=== PATIENT | female | born 1985 | race Caucasian/White ===

== ENCOUNTER 2017-06-02 13:56 | Emergency (ER) | payer OTHER ==
[2017-06-02 14:02] VITALS: BMI 31.3
[2017-06-02 14:07] VITALS: PULSE 67; TEMP 97.7
[2017-06-02] MEDS ORDERED: Sodium Chloride 0.9% 1,000 ML IV STA (14:27)
--- NOTE | 2017-06-02 14:27 | ED PDOC ---
Arrival/HPI <Patrick Dee - Last Filed: 06/02/17 15:41> <Blaise Ivy - Last Filed: 06/02/17 16:26> - General Chief Complaint: Abdominal Pain Time Seen by Provider: 06/02/17 14:02 - History of Present Illness Narrative History of Present Illness (Text): 06/02/17 14:23 31 year old female with a past medical history of hormonal imbalance, R sided kidney stone and recent unknown urological procedure within 1 month at [facility] [place]. The patient is complaining of RLQ pain. The pain is cramping in nature with periods of a sharp, stabbing-like pain. The pain started last night. She spent the night vomiting due to the pain. She is no longer nauseous or vomiting. She has been able to eat and drink today with no problem. She took advil with no relief and midol which relieved the pain for approximately one hour. The patient states that she has some burning and pain with urination. Denies f/c, d/ c, sob, cp, lightheadedness or dizziness. (Patrick Dee) Associated Symptoms (Text): 06/02/17 14:53 Seen and examined with the resident. Our history and physical exam reveals a young woman who reports a 2-3 month history of right-sided flank and right- sided abdominal pain. She was seen at another hospital and had an unknown urological procedure done. She reports that she developed severe pain again last night along with nausea and vomiting. The pain was again severe this morning so she came to the emergency department. It has since resolved. No diarrhea. She also complains of urinary frequency urgency and dysuria. No fever or chills. No injury or trauma. She is currently comfortable. There is also some chronic left-sided sciatica. (Blaise Ivy) Past Medical History - Provider Review Nursing Documentation Reviewed: Yes - Infectious Disease Hx of Infectious Diseases: None - Reproductive Menopause: No - Cardiac Hx Cardiac Disorders: No - Pulmonary Hx Respiratory Disorders: No - Neurological Hx Neurological Disorder: No - HEENT Hx HEENT Disorder: No - Renal Hx Renal Disorder: No - Endocrine/Metabolic Other/Comment: Hormonal inbalance - Hematological/Oncological Hx Blood Disorders: No - Integumentary Hx Dermatological Disorder: No - Musculoskeletal/Rheumatological Hx Musculoskeletal Disorders: No - Gastrointestinal Hx Gastrointestinal Disorders: No - Genitourinary/Gynecological Hx Genitourinary Disorders: No - Psychiatric Hx Psychophysiologic Disorder: No Hx Substance Use: No - Anesthesia Hx Anesthesia: No <Patrick Dee - Last Filed: 06/02/17 15:41> Family/Social History - Physician Review Nursing Documentation Reviewed: Yes Family/Social History: Diabetes (mother), Hypertension (father) Smoking Status: Never Smoked Hx Alcohol Use: No Hx Substance Use: No <Patrick Dee - Last Filed: 06/02/17 15:41> Allergies/Home Meds <Patrick Dee - Last Filed: 06/02/17 15:41> <Blaise Ivy - Last Filed: 06/02/17 16:26> Allergies/Adverse Reactions: Allergies Penicillins Allergy (Verified 06/02/17 14:06) RASH Home Medications: Home Meds Medication Instructions Recorded Confirmed Cholecalciferol (Vitamin D3) 5,000 unit PO DAILY 06/02/17 06/02/17 [Vitamin D3] Review of Systems - Physician Review All systems were reviewed & negative as marked: Yes - Review of Systems Constitutional: absent: Fatigue, Fevers Respiratory: absent: SOB, Cough Cardiovascular: absent: Chest Pain, Palpitations, Edema Gastrointestinal: Abdominal Pain (right sided), Nausea, Vomiting. absent: Constipation, Diarrhea, Food Intolerance Genitourinary Female: Dysuria (burning with urination). absent: Frequency, Hematuria, Vaginal Bleeding, Vaginal Discharge Musculoskeletal: Back Pain (low, left sided) Neurological: absent: Headache, Dizziness Endocrine: absent: Diaphoresis Psychiatric: Normal <Patrick Dee - Last Filed: 06/02/17 15:41> Physical Exam Vital Signs Reviewed: Yes Temperature: Afebrile Blood Pressure: Normal Pulse: Regular Respiratory Rate: Normal Appearance: Positive for: Well-Appearing, Non-Toxic, Comfortable Pain Distress: None Mental Status: Positive for: Alert and Oriented X 3 - Systems Exam Head: Present: Atraumatic, Normocephalic Extroacular Muscles: Present: EOMI Conjunctiva: Present: Normal Mouth: Present: Moist Mucous Membranes Nose (External): Present: Atraumatic. No: Abrasion Neck: Present: Normal Range of Motion Respiratory/Chest: Present: Clear to Auscultation. No: Respiratory Distress, Accessory Muscle Use, Wheezes, Rhonchi, Tachypneic, Tender to Palpation Cardiovascular: Present: Regular Rate and Rhythm, Normal S1, S2 Abdomen: Present: Tenderness (RLQ), Normal Bowel Sounds. No: Distention, Peritoneal Signs, Guarding, Rovsing's Sign Present, Hernias Back: No: CVA Tenderness, Midline Tenderness, Paraspinal Tenderness, Pain with Leg Raise Neurological: Present: GCS=15, Speech Normal Skin: Present: Warm, Dry, Normal Color Psychiatric: Present: Alert, Oriented x 3, Normal Insight, Normal Concentration <Patrick Dee - Last Filed: 06/02/17 15:41> Medical Decision Making <Patrick Dee - Last Filed: 06/02/17 15:41> <Blaise Ivy - Last Filed: 06/02/17 16:26> ED Course and Treatment: 06/02/17 14:40 RLQ abdominal pain - appendicitis vs kidney stone vs UTI - Abdomen/pelvic CT w/o contrast - Prior double - J right renal stent in position with the right renal pelvis, mildly dilated and only borderline calyceal dilatation noted in right kidney. Left kindey is unremarkable. 5.2 mm intra renal calculul identified at the midpole right kidney. No definite acute abdominal findings excluding the right renal pelvis potentially. - UA - small leuk, otherwise unremarkable - no UTI - CBC/CMP - WNL - unremarkable - Lipase - 78 Dispo: Patient given prescriptions for flomax PO daily x 10 and pyridium PO TID x 3 days. Patient was instructed to follow up with urologist that placed stent for further evaluation. If pain worsen or patient has any worsening concerns, patient is instructed to return to the ED. (Patrick Dee) 06/02/17 14:52 Patient Seen With Resident: In agreement with resident note and more details are present in their notes. Patient was seen and evaluated with resident, came up with plan and treatment together. (Blaise Ivy) - Lab Interpretations Lab Results: 06/02/17 14:42 06/02/17 14:42 Lab Results 06/02/17 14:50: Urine Color Yellow, Urine Appearance Clear, Urine pH 5.5, Ur Specific [place] 1.015, Urine Protein Negative, Urine Glucose (UA) Negative, Urine Ketones Negative, Urine Blood Negative, Urine Nitrate Negative, Urine Bilirubin Negative, Urine Urobilinogen 0.2, Ur Leukocyte Esterase Small H, Urine RBC 0 - 2, Urine WBC 2 - 5, Ur Epithelial Cells 1 - 3, Urine Bacteria Few , Urine HCG, Qual Negative 06/02/17 14:42: Sodium 140, Potassium 4.7, Chloride 106, Carbon Dioxide 23, Anion Gap 16, BUN 5 L, Creatinine 0.6, Est GFR ( Amer) > 60, Est GFR (Non -Af Amer) > 60, Random Glucose 83, Calcium 9.7, Total Bilirubin 0.3, AST 29, ALT 27, Alkaline Phosphatase 72, Total Protein 7.7, Albumin 4.5, Globulin 3.2, Albumin/Globulin Ratio 1.4, Lipase 78 06/02/17 14:42: WBC 7.0, RBC 4.46, Hgb 13.0, Hct 38.3, MCV 85.9, MCH 29.1, MCHC 33.9, RDW 13.6, Plt Count 349, MPV 10.3, Gran % 60.3, Lymph % (Auto) 31.5, [place] % (Auto) 5.9, Eos % (Auto) 1.9, Baso % (Auto) 0.4, Gran # 4.22, Lymph # 2.2, [place] # 0.4, Eos # 0.1, Baso # 0.03 - RAD Interpretation Radiology Orders: 06/02/17 14:25 ABDOMEN & PELVIS [ABD & PELVIS W/O PO OR IV CONT] [CT] Stat - Medication Orders Current Medication Orders: Discontinued Medications Sodium Chloride (Sodium Chloride 0.9%) 1,000 mls @ 999 mls/hr IV .Q1H1M STA Stop: 06/02/17 15:27 Last Admin: 06/02/17 14:50 Dose: 999 mls/hr Disposition/Present on Arrival - Present on Arrival Any Indicators Present on Arrival: No History of DVT/PE: No History of Uncontrolled Diabetes: No Urinary Catheter: No History of Decub. Ulcer: No History Surgical Site Infection Following: None - Disposition Have Diagnosis and Disposition been Completed?: Yes Disposition Time: 15:40 Patient Plan: Discharge <Patrick Dee - Last Filed: 06/02/17 15:41> - Present on Arrival Any Indicators Present on Arrival: No History of DVT/PE: No History of Uncontrolled Diabetes: No Urinary Catheter: No History of Decub. Ulcer: No - Disposition Have Diagnosis and Disposition been Completed?: Yes Patient Plan: Discharge <Blaise Ivy - Last Filed: 06/02/17 16:26> - Disposition Diagnosis: Renal colic on right side, Kidney stone, Dysuria, Right flank pain, Abdominal pain, Nausea and vomiting Disposition: HOME/ ROUTINE Condition: GOOD Discharge Instructions (ExitCare): Kidney Stones (ED), Renal Colic (ED) Additional Instructions: Patient given prescription for flomax, instructed to follow up with urologist that placed stent for further evaluation. Prescriptions: Phenazopyridine HCl [Pyridium] 100 mg PO TID #9 tablet Tamsulosin [Flomax] 0.4 mg PO DAILY #10 cap Referrals: Gloria Butts, [Primary Care Provider] - Follow up with primary Forms: [employer] (Welsh)
[2017-06-02 15:03] LABS: BASO # 0.03 K/mm3 (0.0-2.0); BASO % 0.4 % (0.0-3.0); EOS # 0.1 (0.0-0.7); EOS % 1.9 % (1.5-5.0); GRAN # 4.22 (1.4-6.5); GRAN % 60.3 % (50.0-68.0); HEMATOCRIT 38.3 % (36.0-48.0); LYMPH # 2.2 (1.2-3.4); LYMPH % 31.5 % (22.0-35.0); MEAN CELL VOLUME 85.9 fl (80.0-105.0); MEAN CORPUSCULAR HEMOGLOBIN 29.1 pg (25.0-35.0); MEAN CORPUSCULAR HGB CONC 33.9 g/dl (31.0-37.0); MEAN PLATELET VOLUME 10.3 fl (7.0-11.0); MONO # 0.4 (0.1-0.6); MONO % 5.9 % (1.0-6.0); RED CELL DISTRIBUTION WIDTH 13.6 % (11.5-14.5)
[2017-06-02 15:05] LABS: PH,URINE 5.5 (4.7-8.0); URINE BILIRUBIN NEGATIVE (NEGATIVE); URINE BLOOD NEGATIVE (NEGATIVE); URINE GLUCOSE (UA) NEGATIVE (NEGATIVE); URINE KETONE NEGATIVE (NEGATIVE); URINE LEUKOCYTE ESTERASE SMALL Leu/uL (NEGATIVE); URINE PROTEIN NEGATIVE mg/dL (<30 mg/dL); URINE UROBILINOGEN 0.2 E.U./dL (<1 E.U./dL)
[2017-06-02 15:11] LABS: URINE APPEARANCE CLEAR (CLEAR); URINE COLOR YELLOW (YELLOW)
[2017-06-02 15:14] LABS: ALB/GLOB RATIO 1.4 (1.1-1.8); ALKALINE PHOSPHATASE 72 U/L (38-126); ALT/SGPT 27 U/L (7-56); AST/SGOT 29 U/L (14-36); BILIRUBIN,TOTAL 0.3 mg/dL (0.2-1.3); BLOOD UREA NITROGEN 5 mg/dL (7-21); CALCIUM 9.7 mg/dL (8.4-10.5); CARBON DIOXIDE 23 mmol/L (21-33); CHLORIDE 106 mmol/L (98-107); GFR AFRICAN-AMERICAN > 60; GLUCOSE,RANDOM 83 mg/dL (70-110); LIPASE 78 U/L (23-300); POTASSIUM 4.7 mmol/L (3.6-5.0); SODIUM 140 mmol/L (132-148); TOTAL PROTEIN 7.7 g/dL (5.8-8.3)
[2017-06-02 15:16] LABS: URINE RBC 0 - 2 /hpf (0-2)
[2017-06-02 15:17] LABS: URINE BACTERIA FEW (NEG)
--- NOTE | 2017-06-02 15:20 | CT ---
PROCEDURE: CT Abdomen and Pelvis without intravenous contrast HISTORY: RLQ pain COMPARISON: None. TECHNIQUE: Technique. Contrast Dose: None Radiation dose: Total exam DLP = 560 mGy-cm. This CT exam was performed using one or more of the following dose reduction techniques: Automated exposure control, adjustment of the mA and/or kV according to patient size, and/or use of iterative reconstruction technique. FINDINGS: LOWER THORAX: Unremarkable. LIVER: Unremarkable. No gross lesion or ductal dilatation. GALLBLADDER AND BILE DUCTS: Unremarkable. PANCREAS: Unremarkable. No gross lesion or ductal dilatation. SPLEEN: Unremarkable. ADRENALS: Unremarkable. No mass. KIDNEYS AND URETERS: Right-sided double-J ureteral stent is in position with the right renal pelvis is mildly dilated. There is only marginal dilatation of the calyceal system in the right kidney however. No left-sided obstructive uropathy. Urinary bladder is smooth and thin walled and appears mildly distended. No medium or large sized radiodense calculus is seen adjacent to the right ureteral stent throughout its course. None is appreciable free in the urinary bladder. A 4.2 x 5.2 x 4.9 cm intrarenal calculus identified at a midpole right kidney calyx. None is seen at the left. VASCULATURE: Unremarkable. No aortic aneurysm. BOWEL: Unremarkable. No obstruction. No gross mural thickening. APPENDIX: Unremarkable. Normal appendix. PERITONEUM: Unremarkable. No free fluid. No free air. LYMPH NODES: Unremarkable. No enlarged lymph nodes. BLADDER: Included in ureters and renal section above. REPRODUCTIVE: Unremarkable. BONES: No acute fracture. OTHER FINDINGS: None. IMPRESSION: Prior double-J right renal stent in position with the right renal pelvis mildly dilated and only borderline calyceal dilatation noted in the right kidney. Left kidney is unremarkable. 5.2 mm intrarenal calculus identified at the midpole right kidney. Lack of contrast agents limits evaluation of the solid viscera and bowel. No definite acute abdominal findings excluding the right renal pelvis potentially.
[2017-06-02 16:06] VITALS: BP 117/74; RESP 17; O2SAT 98
== END 2017-06-02 16:06 | disposition home or self-care (01) ==
LOC: ED 13:56
DX: N20.0 Calculus of kidney (principal); R30.0 Dysuria; R11.2 Nausea with vomiting, unspecified; R10.31 Right lower quadrant pain
CPT/HCPCS: 74176; 80053; 81001; 83690; 84703; 85025; 87086; 96360; 99283; J7040